=== PATIENT | female | born 1970 | race American Indian/Alaskan Native ===

== ENCOUNTER 2016-09-26 08:08 | Day surgery (SDC) | payer OTHER ==
[2016-09-21 15:43] VITALS: BMI 27.6
[2016-09-26 09:08] LABS: HEMATOCRIT 27.2 % (34.0-47.0); MEAN CELL VOLUME 69.5 fL (81.0-99.0); MEAN CORPUSCULAR HGB CONC 31.7 g/dL (33.0-37.0); MEAN PLATELET VOLUME 7.1 fL (7.2-11.7); RED CELL DISTRIBUTION WIDTH 17.6 % (11.5-14.5); WHITE BLOOD COUNT 5.1 K/uL (4.8-10.8)
[2016-09-26 09:09] VITALS: O2SAT 100
[2016-09-26] MEDS ORDERED: cefOXitin IV 1 gm in Dextrose 1 GM/50 ML BAG IVPB ONE (09:23)
[2016-09-26] MEDS ORDERED: Lactated Ringer's 1,000 ML IV ONE ×2 (09:25)
[2016-09-26] MEDS ORDERED: Propofol 10 mg/ml Inj (20 ML) ONE (09:32)
[2016-09-26] MEDS ORDERED: Midazolam 2 MG/2 ML VIAL ONE (09:32)
[2016-09-26] MEDS ORDERED: HYDROmorphone 0.5 mg/0.5 ml ISec IVP PRN (10:19)
--- NOTE | 2016-09-26 10:29 | PCM.SURG1 ---
Surgeon's Initial Post Op Note - Surgeon's Notes Surgeon: dr geiger Core Cutter: none Type of Anesthesia: General LMA Anesthesia Administered By: dr davis Pre-Operative Diagnosis: 46yr with menomettorhagia/anemia Operative Findings: see the op report Post-Operative Diagnosis: same Operation Performed: novasure ablation/d &c, hysterscopy Specimen/Specimens Removed: ecc. emc Estimated Blood Loss: EBL {In ML}: 20 Drains Used: No Drains Post-Op Condition: Good Date of Surgery/Procedure: 09/26/16 Time of Surgery/Procedure: 10:40
[2016-09-26 13:08] VITALS: BP 118/73; PULSE 67; RESP 18; TEMP 97.8
--- NOTE | 2016-09-28 09:10 | PCM.OP ---
Operative Report - Operative Report Date of Surgery/Procedure: 09/26/16 Time of Surgery/Procedure: 11:00 Surgeon: dr geiger Beveller Operator: none Anesthesia/Sedation: craig smith by dr davis Pre-Operative Diagnosis: 46 yr with menometorrhagia/anemia. done with child bearing Post-Operative Diagnosis: same Indication for Surgery: menometorrhagia/anemia Operative Findings: after informed consent sterle spec inserted. ut 6 week size. ant lip of cervoix grasped with ten. gentle dilation done. hystersvcopy introduced.currtae donee on all wall. small tissue. ecc done. cervix 4 cm. ut 10 cm. cavity lengh 6 cm.decision to novasure. width was 4.5 cm . after cavity assesementablation done for 90 sec. novasure removed.tenaculum removed. pt tolerated it the procedure. no com. Procedure/Operation Description: novasure endometrial ablation/d &c, hystercopy Estimated Blood Loss: 20 cc Sponge/Instrument Count: correct Complications: none Specimen: ecc. emc Discharge & Condition: stable
== END 2016-09-26 13:05 | disposition home or self-care (01) ==
LOC: C.SDS 08:08
PROVIDERS: ATTEND Obstetrics & Gynecology
DX: D50.0 Iron deficiency anemia secondary to blood loss (chronic) (principal); N92.1 Excessive and frequent menstruation with irregular cycle
CPT/HCPCS: 36415; 58558; 58563; 85027; 86850; 86900; 88305; J0694; J1170; J2250; J2704; J3010; J7120

== ENCOUNTER 2017-07-31 06:24 | Inpatient (IN) | payer OTHER ==
[2016-09-21 15:43] VITALS: BMI 27.6
[2017-07-31] MEDS ORDERED: Propofol 10 mg/ml Inj (20 ML) ONE (07:40)
[2017-07-31] MEDS ORDERED: Midazolam 2 MG/2 ML VIAL ONE (07:40)
[2017-07-31] MEDS ORDERED: cefOXitin IV 1 gm in Dextrose 2 GM/100 ML BAG IVPB ONE (07:53)
[2017-07-31] MEDS ORDERED: Rocuronium 10 mg/ml (5 ml) ONE (08:04)
[2017-07-31] MEDS ORDERED: Neostigmine Methylsulfate 3mg/3ml Syringe IV ONE (08:09)
[2017-07-31] MEDS ORDERED: Morphine Monoject Barrel PCA 1mg/ml IV PRN (09:41)
[2017-07-31] MEDS: Morphine 4 MG/ML VIAL IVP PRN ×2 (09:55→10:28)
[2017-07-31] MEDS ORDERED: Morphine 4 MG/ML VIAL ONE (09:56)
[2017-07-31] MEDS ORDERED: Oxycodone/Acetaminophen 5/325 mg Tab PO PRN (10:08)
--- NOTE | 2017-07-31 10:12 | PCM.SURG1 ---
Surgeon's Initial Post Op Note - Surgeon's Notes Surgeon: dr geiger Truck Driver: dr larose Type of Anesthesia: General LMA Anesthesia Administered By: susan Pre-Operative Diagnosis: 47 abnormal uterine bleeding falied medical management Operative Findings: ee the op reort Post-Operative Diagnosis: same with multiple fibroid Operation Performed: ex lap total abdominal hystrectomy, b/l salpingectomy Specimen/Specimens Removed: uterus. cervix. b/l tube Estimated Blood Loss: EBL {In ML}: 150 Blood Products Given: N/A Drains Used: No Drains Post-Op Condition: Good Date of Surgery/Procedure: 07/31/17 Time of Surgery/Procedure: 10:45
[2017-07-31] MEDS: Lactated Ringer's 1,000 ML IV SCH ×2 (12:00→18:28)
[2017-07-31] MEDS: Simethicone 80 mg Chewtab PO SCH ×2 (18:58→21:50)
[2017-08-01] MEDS: Lactated Ringer's 1,000 ML IV SCH (03:00)
--- NOTE | 2017-08-01 06:40 | CP.PCM.PN ---
Subjective - Date & Time of Evaluation Date of Evaluation: 08/01/17 Time of Evaluation: 07:00 - Subjective Subjective: pt was seen at bed side, pain under control,no n/v, no vb.waiting to void abd dessing cleasn and dry ext no edema,no calf ten Objective - Vital Signs/Intake and Output Vital Signs (last 24 hours): Temp Pulse Resp BP Pulse Ox 99.2 F 74 20 107/62 100 08/01/17 00:00 08/01/17 00:00 08/01/17 00:00 08/01/17 00:00 08/01/17 00:00 Intake and Output: 07/31/17 08/01/17 18:59 06:59 Intake Total 2225 500 Output Total 500 600 Balance 1725 -100 - Medications Medications: Current Medications Bisacodyl (Dulcolax) 10 mg PO ONCE ONE Stop: 08/01/17 10:10 Lactated Ringer's (Lactated Ringer's) 1,000 mls @ 125 mls/hr IV .Q8H [facility] Last Admin: 08/01/17 03:00 Dose: 125 mls/hr Ibuprofen (Motrin Tab) 600 mg PO Q6H PRN PRN Reason: Pain, Mild (1-3) Oxycodone/Acetaminophen (Percocet 5/325 Mg Tab) 1 tab PO Q4H PRN PRN Reason: Pain, moderate (4-7) Stop: 08/03/17 10:09 Oxycodone/Acetaminophen (Percocet 5/325 Mg Tab) 2 tab PO Q4H PRN PRN Reason: Pain, severe (8-10) Stop: 08/03/17 10:09 Last Admin: 08/01/17 05:20 Dose: 2 tab Simethicone (Mylicon Chew Tab) 80 mg PO QID [facility] Last Admin: 07/31/17 21:50 Dose: 80 mg Assessment and Plan - Assessment and Plan (Free Text) Assessment: 47 uyr s/p total abdominal hystrectomy Plan: plan stop manager cardiology pump liquid deit advance as tolerated encourage ambulation labs pain kendy cont post op care
--- NOTE | 2017-08-01 07:26 | OP ---
PROCEDURE DATE: 07/31/2017 PREOPERATIVE DIAGNOSES: A 47-year-old 1, para 1 with abnormal uterine bleeding, failed medical management, failed surgical management. POSTOPERATIVE DIAGNOSES: A 47-year-old 1, para 1 with abnormal uterine bleeding, failed medical management, failed surgical management SURGEON: Amilcar Cool MD [employer] MAINTENANCE SURGEON: Dr. Kuhn who was present throughout the surgical exposure, retraction and helping with further surgery. ANESTHESIA: General anesthesia. ANESTHESIOLOGIST: Nancy Ford MD COMPLICATIONS: None. PROCEDURES PERFORMED: Total abdominal hysterectomy and bilateral salpingectomy. ESTIMATED BLOOD LOSS: 150 mL. SPECIMEN: Uterus, pelvis, bilateral tubes. COMPLICATIONS: None. DESCRIPTION OF PROCEDURE: After informed consent was obtained, the patient was brought to the operating room, placed on the table where general anesthesia was given. When anesthesia was found to be sufficient, she was prepped and draped in normal sterile fashion. At the site of the previous skin incision, an incision was made with a knife; the subcutaneous cut with a Bovie. The fascia was then excised on both the sides using curved Mena scissors. The fascia was from the site of the umbilicus and the rectus muscle, . Uterus was exteriorized. There was multiple fibroids on the uterus. After that, wet laps were placed for the bowels. visualized, they were normal. The decision was to perform a total abdominal hysterectomy and then round ligament was taken with Ethicon. It was taken on the left side and the right side, and after that, the window was made on the broad ligament and then the right utero-ovarian ligament was taken with two Heaneys. It was cut and then suture ligated. The same thing was done on the left side. After that, the bladder flap was created, it was pushed down and the peritoneum in the posterior part was pulled down too. Bladder was pulled down with the sponge and the stick. After that, the uterine artery on the right side was taken down with two Heaneys and the was cut and clamped. The same thing was done on the left side. Then the bite was taken bite and then the cardinal ligament was taken with Jason, it was cut and suture ligated. The same thing was done on the right side. After that, was taken in multiple bites medial to the previous bite. After that, the cervical . The cervix was cut with the knife. It was sent to the pathology. Uterus and cervix were sent to the pathology. Vaginal wall was visualized. It was suture ligated with found to be hemostatic. No bleeding. FloSeal was placed and found to be hemostatic. Endoseal was placed. Lot of irrigation was done. All the laps were counted and it was Peritoneum was closed using 2-0 Vicryl in running interlocking fashion. The muscle was closed using 2-0 Vicryl in running interlocking fashion. Fascia was closed using 1 Vicryl in running interlocking fashion. Skin was closed using 2-0 Monocryl. The patient tolerated the procedure well. Lap, sponge, and instrument counts were correct x2. Amilcar Cool MD
[2017-08-01 07:57] LABS: HEMOGLOBIN 10.4 g/dL (11.0-16.0); MEAN CELL VOLUME 73.1 fL (81.0-99.0); MEAN CORPUSCULAR HEMOGLOBIN 23.6 pg (27.0-31.0); MEAN CORPUSCULAR HGB CONC 32.3 g/dL (33.0-37.0); MEAN PLATELET VOLUME 7.1 fL (7.2-11.7); RBC 4.4 Mil/uL (3.80-5.20); RED CELL DISTRIBUTION WIDTH 18.1 % (11.5-14.5); WHITE BLOOD COUNT 11.6 K/uL (4.8-10.8)
[2017-08-01 08:34] LABS: ALBUMIN 3.7 g/dL (3.5-5.0); ALT/SGPT 27 U/L (9-52); AST/SGOT 28 U/L (14-36); BLOOD UREA NITROGEN 10 mg/dL (7-17); CALCIUM 9.2 mg/dl (8.6-10.4); GFR AFRICAN-AMERICAN > 60; GFR NON-AFRICAN AMERICAN > 60
[2017-08-01] MEDS: Simethicone 80 mg Chewtab PO SCH ×4 (10:00→22:29)
[2017-08-01] MEDS: Oxycodone/Acetaminophen 5/325 mg Tab PO PRN ×3 (10:03→20:29)
[2017-08-01] MEDS ORDERED: Bisacodyl 5mg EC Tab PO ONE (10:09)
--- NOTE | 2017-08-02 08:44 | CP.PCM.DIS ---
Provider - Provider Date of Admission: 07/31/17 06:24 Attending physician: Amilcar Cool MD Time Spent in preparation of Discharge (in minutes): 47 Hospital Course - Lab Results Lab Results: Most Recent Lab Values WBC 11.6 K/uL (4.8-10.8) H D 08/01/17 07:49 RBC 4.40 Mil/uL (3.80-5.20) 08/01/17 07:49 Hgb 10.4 g/dL (11.0-16.0) L 08/01/17 07:49 Hct 32.2 % (34.0-47.0) L 08/01/17 07:49 MCV 73.1 fL (81.0-99.0) L D 08/01/17 07:49 MCH 23.6 pg (27.0-31.0) L 08/01/17 07:49 MCHC 32.3 g/dL (33.0-37.0) L 08/01/17 07:49 RDW 18.1 % (11.5-14.5) H 08/01/17 07:49 Plt Count 502 K/uL (130-400) H 08/01/17 07:49 MPV 7.1 fL (7.2-11.7) L 08/01/17 07:49 Sodium 138 mmol/L (132-148) 08/01/17 07:49 Potassium 4.1 mmol/L (3.6-5.2) 08/01/17 07:49 Chloride 100 mmol/L (98-107) 08/01/17 07:49 Carbon Dioxide 27 mmol/L (22-30) 08/01/17 07:49 Anion Gap 15 (10-20) 08/01/17 07:49 BUN 10 mg/dL (7-17) 08/01/17 07:49 Creatinine 0.8 mg/dL (0.7-1.2) 08/01/17 07:49 Est GFR ( Amer) > 60 08/01/17 07:49 Est GFR (Non-Af Amer) > 60 08/01/17 07:49 Random Glucose 104 mg/dL (65-105) 08/01/17 07:49 Calcium 9.2 mg/dl (8.6-10.4) 08/01/17 07:49 Total Bilirubin 0.7 mg/dL (0.2-1.3) 08/01/17 07:49 AST 28 U/L (14-36) 08/01/17 07:49 ALT 27 U/L (9-52) 08/01/17 07:49 Alkaline Phosphatase 93 U/L (38-126) 08/01/17 07:49 Total Protein 7.5 g/dL (6.3-8.3) 08/01/17 07:49 Albumin 3.7 g/dL (3.5-5.0) 08/01/17 07:49 Globulin 3.8 gm/dL (2.2-3.9) 08/01/17 07:49 Albumin/Globulin Ratio 1.0 (1.0-2.1) 08/01/17 07:49 Blood Type A POSITIVE 07/31/17 07:22 Antibody Screen Negative 07/31/17 07:22 - Hospital Course Hospital Course: Patient is a 47 year old female s/p total abdominal hysterectomy and bilateral salpingectomy. Patient is POD#2. Patient presented with uterine bleeding and had previously failed medical management. Patient is tolerating diet and ambulating without difficulty. Patient's pain has improved, but still reports expected post-op mild-moderate tenderness. Patient is stable for discharge per Dr. Cool. Patient must follow up with Dr. Cool within one week. Discharge Exam - Head Exam Head Exam: ATRAUMATIC, NORMAL INSPECTION - Eye Exam Eye Exam: EOMI, Normal appearance - ENT Exam ENT Exam: Mucous Membranes Moist - Respiratory Exam Respiratory Exam: Clear to PA & Lateral, NORMAL BREATHING PATTERN. absent: Rales, Rhonchi, Wheezes, Respiratory Distress - Cardiovascular Exam Cardiovascular Exam: REGULAR RHYTHM, +S1, +S2 - GI/Abdominal Exam GI & Abdominal Exam: Normal Bowel Sounds, Tenderness (s/p hysterectomy). absent : Distended, Firm - Extremities Exam Extremities exam: normal inspection, pedal pulses present - Neurological Exam Neurological exam: Alert, Oriented x3 - Psychiatric Exam Psychiatric exam: Normal Affect, Normal Mood - Skin Skin Exam: Dry, Intact, Normal Color, Warm Discharge Plan - Follow Up Plan Condition: GOOD Disposition: HOME/ ROUTINE Additional Instructions: Patient is stable for discharge to home per Dr. Cool. Patient must follow up with Dr. Travon next week. Patient may continue taking these medication: 1. Ibuprofen 800mg PO every 6 hours as needed for mild-moderate pain. 2. Percocet 5/325mg PO every 6 hours as needed for severe pain. If having fevers or severe pain, return to the Emergency Room.
[2017-08-02 09:22] VITALS: BP 100/60; PULSE 93; RESP 18; TEMP 98.6; O2SAT 99
[2017-08-02] MEDS: Simethicone 80 mg Chewtab PO SCH (10:46)
== END 2017-08-02 11:44 | disposition home or self-care (01) | DRG 359 ==
LOC: EEVIPCON 06:24 → C.9S 06:24 → C.4M 14:12
PROVIDERS: ADMIT Obstetrics & Gynecology; ATTEND Obstetrics & Gynecology
PROC: 0UT70ZZ Resection of Bilateral Fallopian Tubes, Open Approach (ICD-10-PCS; 2017-07-31)
PROC: 0UT90ZZ Resection of Uterus, Open Approach (ICD-10-PCS; principal; 2017-07-31 07:45)
DX: N80.0 Endometriosis of uterus (principal); N93.8 Other specified abnormal uterine and vaginal bleeding